=== PATIENT | male | born 1955 | race Caucasian/White ===

== ENCOUNTER 2019-02-15 04:05 | Emergency (ER) | payer MEDICAID ==
[~2019-02-15] VITALS: Ht 167.6 cm; Wt 83.9 kg
[2019-02-15 04:20] VITALS: BP_SYST 124
[2019-02-15] MEDS ORDERED: AMLO5TAB4 PO (04:26)
[2019-02-15] MEDS ORDERED: OMEP20CA10 PO (04:26)
[2019-02-15] MEDS ORDERED: ALBMDI INH (04:27)
[2019-02-15] MEDS ORDERED: LevALBUTEROL HCL 1.25 MG/0.5 ML *CONC.* VIAL.NEB (XOPENEX CONC.) INH ONE (04:30)
[2019-02-15] MEDS ORDERED: IPRATROPIUM BROM 0.5 MG/2.5 ML VIAL.NEB (ATROVENT) IH ONE (04:30)
[2019-02-15] MEDS ORDERED: AMOXICILLIN 500 MG CAPSULE PO ONE (05:30)
[2019-02-15 05:40] VITALS: BP_SYST 124
== END 2019-02-15 05:40 | disposition home or self-care (01) ==
LOC: SED 04:05
DX: J40 Bronchitis, not specified as acute or chronic (principal); I10 Essential (primary) hypertension; K21.9 Gastro-esophageal reflux disease without esophagitis
CPT/HCPCS: 71046; 94640; 99283; J7612

== ENCOUNTER 2019-09-14 07:19 | Emergency (ER) | payer MEDICAID ==
[~2019-09-14] VITALS: Ht 167.6 cm; Wt 83.9 kg
[~2019-09-14 07:19] MED LIST: ALBMDI INH; AMLO5TAB4 PO; OMEP20CA11 PO
[2019-09-14 07:41] VITALS: BP_SYST 136
[2019-09-14] MEDS ORDERED: HYDR-4100 PO (07:41)
--- NOTE | 2019-09-14 07:49 | NUR ---
PATIENT TO WAITING ROOM; STABLE AND UNCHANGED
--- NOTE | 2019-09-14 08:11 | NUR ---
PATIENT NOT FOUND IN ER NOR SURROUNDING AREA; ELOPED/LWBS
== END 2019-09-14 08:11 | disposition left against medical advice (07) ==
LOC: SED 07:19
DX: R21 Rash and other nonspecific skin eruption (principal); Z53.21 Procedure and treatment not carried out due to patient leaving prior to being seen by health care provider

== ENCOUNTER 2019-12-15 14:17 | Emergency (ER) | payer MEDICAID ==
[~2019-12-15] VITALS: Ht 165.1 cm; Wt 83.9 kg
[~2019-12-15 14:17] MED LIST changes: +HYDR-4100 PO
[2019-12-15 14:30] VITALS: BP_SYST 139
[2019-12-15] MEDS ORDERED: ASPI-989 PO (14:30)
[2019-12-15] MEDS ORDERED: DOXY100C2 PO (14:30)
[2019-12-15] MEDS ORDERED: SOM350 PO (14:35)
[2019-12-15 15:10] LABS: BASOPHILS # (AUTO) 0.1 K/uL (0.0-0.2); BASOPHILS % (AUTO) 1.3 % (0.0-2.0); EOSINOPHILS # (AUTO) 0.3 K/uL (0.0-0.4); EOSINOPHILS % (AUTO) 4.1 % (0.0-4.0); HEMATOCRIT 45.9 % (36-54); HEMOGLOBIN 15.6 g/dL (14.0-18.0); LYMPHOCYTES # (AUTO) 1.8 K/uL (1.0-5.5); LYMPHOCYTES % (AUTO) 28.8 % (20.5-51.5); MEAN CORPUSCULAR HEMOGLOBIN 32 pg (27-31); MEAN CORPUSCULAR HGB CONC 34 % (32-36); MEAN CORPUSCULAR VOLUME 93 fL (79.0-98.0); MONOCYTES # (AUTO) 0.6 K/uL (0.0-1.0); MONOCYTES % (AUTO) 9.5 % (1.7-9.3); NEUTROPHILS # (AUTO) 3.6 K/uL (1.8-7.7); NEUTROPHILS % (AUTO) 56.3 % (40.0-70.0); PLATELET COUNT (AUTO) 164 K/uL (130-430); RED BLOOD CELL COUNT(AUTO) 4.94 MIL/uL (4.2-6.2); RED CELL DISTRIBUTION WIDTH 14.3 % (9.0-15.0); WHITE BLOOD COUNT (AUTO) 6.4 K/uL (4.8-10.8)
[2019-12-15 15:16] LABS: CALCIUM 8.4 mg/dL (8.4-11.0); CREATININE 1.16 mg/dL (0.55-1.30); POTASSIUM 3.4 mmol/L (3.5-5.1)
[2019-12-15 15:20] LABS: PROTHROMBIN TIME 9.9 SECS (9.5-12.5)
[2019-12-15 15:22] LABS: ALBUMIN 3.6 g/dL (3.4-4.8); TOTAL BILIRUBIN 0.4 mg/dL (0.0-1.0)
[2019-12-15 15:30] LABS: BILIRUBIN,URINE NEGATIVE (NEGATIVE); CLARITY/URINE CLEAR (CLEAR); COLOR,URINE YELLOW (YELLOW); GLUCOSE,URINE NEGATIVE (NEGATIVE); KETONES,URINE NEGATIVE (NEGATIVE); LEUKOCYTE ESTERASE ,URINE TRACE (NEGATIVE); NITRITE, URINE NEGATIVE (NEGATIVE); PROTEIN URINE NEGATIVE (NEGATIVE); UROBILINOGEN,URINE 0.2 (0.2-1.0)
[2019-12-15 15:43] LABS: BARBITURATE, URINE NEGATIVE (NEG <=200)
[2019-12-15 15:44] LABS: BENZODIAZEPINE, URINE POSITIVE (NEG <=150); CANNABINOID, URINE NEGATIVE (NEG <=50); COCAINE, URINE NEGATIVE (NEG <=150); METHAMPHETAMINES SCREEN,URINE POSITIVE (NEG <=500); OPIATE, URINE POSITIVE (NEG <=100); PHENCYCLIDINE SCREEN,URINE NEGATIVE (NEG <=25); UR TRICYCLIC ANTIDEPRESSANTS NEGATIVE (NEG <=300); URINE AMPHETAMINE POSITIVE (NEG <=500); URINE METHADONE NEGATIVE (NEG <=200); URINE OXYCODONE SCREEN NEGATIVE (NEG <=100); URINE PROPOXYPHENE SCREEN NEGATIVE (NEG <=300)
[2019-12-15 15:45] LABS: BLOOD, URINE TRACE (NEGATIVE)
[2019-12-15 15:47] LABS: BACTERIA,URINE FEW /HPF (None Seen); RBC,URINE NONE SEEN /HPF (0-3)
[2019-12-15 15:48] LABS: MUCUS,URINE None Seen /LPF (None Seen)
[2019-12-15 23:19] VITALS: BP_SYST 159
== END 2019-12-15 16:00 | disposition home or self-care (01) ==
LOC: SED 14:17
DX: R41.82 Altered mental status, unspecified (principal); F19.10 Other psychoactive substance abuse, uncomplicated; I10 Essential (primary) hypertension; Z79.899 Other long term (current) drug therapy
CPT/HCPCS: 36415; 70450; 71045; 80053; 80307; 81000; 82550; 84484; 85025; 85610; 85730; 93005; 99285; G0482

== ENCOUNTER 2020-09-29 16:54 | Inpatient (IN) | payer MEDICAID ==
[~2020-09-29] VITALS: Ht 167.6 cm; Wt 86.2 kg
[~2020-09-29 16:54] MED LIST changes: -ALBMDI INH; +ASPI-989 PO; +DOXY100C2 PO; +HYDR-3927 PO; -HYDR-4100 PO; -OMEP20CA11 PO; +SOM350 PO
--- NOTE | 2020-09-29 17:02 | NUR ---
Patient to ER bed 8 to gown for evaluation. Side rails up. Report given to ELENA Montague.
[2020-09-29 17:03] VITALS: BP_SYST 153
--- NOTE | 2020-09-29 17:05 | NUR ---
patient is assessed. A/Ox4. C/o dysphagia (unable to swallow even water and saliva). Patient had a hotdog earlier today, which he was not able to swallow. Ambulatory, A/Ox4, cooperative.
--- NOTE | 2020-09-29 17:08 | NUR ---
ALLY David at bedside examining patient.
[2020-09-29] MEDS ORDERED: PRED10TA PO (17:11)
[2020-09-29] MEDS ORDERED: SPIRIVA PO (17:11)
[2020-09-29] MEDS ORDERED: SOM350 PO (17:11)
[2020-09-29] MEDS ORDERED: ALBMDI PO (17:11)
[2020-09-29] MEDS ORDERED: AMLO5TAB4 PO (17:11)
[2020-09-29] MEDS ORDERED: HYDR-4274 PO (17:11)
--- NOTE | 2020-09-29 17:11 | NUR ---
Medication reconciliation completed with information provided by patient. Any prior medication reconciliation on file was reviewed and corrected.
[2020-09-29] MEDS ORDERED: NACL 0.9% 1,000 ML IV ONE (17:15)
[2020-09-29] MEDS ORDERED: ONDANSETRON HCL 4 MG/2 ML VIAL IVP ONE (17:15)
[2020-09-29 17:27] LABS: HEMATOCRIT 44.4 % (36-54); HEMOGLOBIN 14.7 g/dL (14.0-18.0); MEAN CORPUSCULAR HEMOGLOBIN 30 pg (27-31); MEAN CORPUSCULAR HGB CONC 33 % (32-36); MEAN CORPUSCULAR VOLUME 91 fL (79.0-98.0); PLATELET COUNT (AUTO) 223 K/uL (130-430); RED CELL DISTRIBUTION WIDTH 13.6 % (9.0-15.0); WHITE BLOOD COUNT (AUTO) 23.4 K/uL (4.8-10.8)
[2020-09-29] MEDS ORDERED: LR 1,000 ML IV ONE (17:30)
[2020-09-29 17:40] LABS: ANION GAP 9 (5-15); CHLORIDE 106 mmol/L (98-107); GLUCOSE 113 mg/dL (70-99); POTASSIUM 4.3 mmol/L (3.5-5.1); SODIUM SERUM 142 mmol/L (136-145)
[2020-09-29 17:41] LABS: BAND % (MANUAL) 5 % (0-6); BASOPHILS % (MANUAL) 0 % (0-2); CALCIUM 9.3 mg/dL (8.4-11.0); CREATININE 1.39 mg/dL (0.55-1.30); EOSINOPHILS % (MANUAL) 0 % (0-7); GFR AFRICAN AMERICAN 66 mL/min (>90); LYMPHOCYTES % (MANUAL) 4 % (20-46); MONOCYTES % (MANUAL) 4 % (0-11); UREA NITROGEN, BLOOD 21 mg/dL (8-21)
[2020-09-29 17:46] LABS: ALANINE AMINOTRANSFERASE 34 U/L (12-78); ASPARTATE AMINOTRANSFERASE 20 U/L (10-37); BILIRUBIN,DIRECT 0.1 mg/dL (0.0-0.3); TOTAL BILIRUBIN 0.4 mg/dL (0.0-1.0)
[2020-09-29 17:47] LABS: LIPASE 39 U/L (73-393)
[2020-09-29 18:20] LABS: BILIRUBIN,URINE NEGATIVE (NEGATIVE); BLOOD, URINE NEGATIVE (NEGATIVE); CLARITY/URINE CLEAR (CLEAR); COLOR,URINE YELLOW (YELLOW); GLUCOSE,URINE NEGATIVE (NEGATIVE); KETONES,URINE NEGATIVE (NEGATIVE); LEUKOCYTE ESTERASE ,URINE NEGATIVE (NEGATIVE); NITRITE, URINE NEGATIVE (NEGATIVE); PROTEIN URINE NEGATIVE (NEGATIVE); UROBILINOGEN,URINE 0.2 (0.2-1.0)
[2020-09-29 18:34] LABS: BARBITURATE, URINE NEGATIVE (NEG <=200)
[2020-09-29 18:35] LABS: BENZODIAZEPINE, URINE POSITIVE (NEG <=150); CANNABINOID, URINE POSITIVE (NEG <=50); COCAINE, URINE NEGATIVE (NEG <=150); METHAMPHETAMINES SCREEN,URINE POSITIVE (NEG <=500); PHENCYCLIDINE SCREEN,URINE NEGATIVE (NEG <=25); URINE AMPHETAMINE POSITIVE (NEG <=500); URINE METHADONE NEGATIVE (NEG <=200)
[2020-09-29 18:36] LABS: OPIATE, URINE POSITIVE (NEG <=100); UR TRICYCLIC ANTIDEPRESSANTS NEGATIVE (NEG <=300); URINE OXYCODONE SCREEN NEGATIVE (NEG <=100); URINE PROPOXYPHENE SCREEN NEGATIVE (NEG <=300)
--- NOTE | 2020-09-29 18:40 | NUR ---
Patient will be admitted to care of Dr. Burt. Admitted to medsurg unit. Waiting for room assignment. Belongings list completed. Complete and up to date summary report printed. SBAR report to be given at bedside with opportunity for questions.
[2020-09-29] MEDS ORDERED: MORPHINE 4 MG/ML INJ. SYRINGE IVP ONE (19:00)
--- NOTE | 2020-09-29 19:04 | NUR ---
Report given to ELENA Braswell for continuation of care.
--- NOTE | 2020-09-29 19:05 | NUR ---
Received endorsement from day shift, AAOX4, breathing spontaneously at room air, not in distress noted. witrh ongoing IV fluid with Ringer [id number] at 100ml/hour infusing well at right antecubital vein. Admitted as a case of Food Impaction under the care of Dr. Burt to telemetry unit. Safety mesaures in place and continue to monitor.
--- NOTE | 2020-09-29 19:23 | NUR ---
Complained of severe abdominal and throat pain 10/10. Morphhine 4mg IV once as ordered given. health teaching provided, verbalized understanding.
--- NOTE | 2020-09-29 19:46 | NUR ---
Med/sug contacted and spoke to ELENA Grande, she will call me back for the report.
--- NOTE | 2020-09-29 20:10 | NUR ---
Patient's Tierra called, update patient status and she spoke with Dr. David , ER Attending
--- NOTE | 2020-09-29 20:26 | NUR ---
Transfer to MED/SURG 117-A via WHEELCHAIR IN STABLE CONDITION. IV present no signs or symptoms of infiltration.Report given to Ms. Christiane RN via phone
[2020-09-29] MEDS ORDERED: ALBUTEROL SULFATE 0.083% 2.5 MG/3 ML VIAL.NEB INH PRN (20:30)
[2020-09-29] MEDS ORDERED: NALOXONE HCL 0.4 MG/ML AMP (NARCAN) IVP PRN ×2 (20:30)
[2020-09-29] MEDS ORDERED: hydrALAZINE HCL 20 MG/ML VIAL IVP PRN (20:30)
[2020-09-29] MEDS ORDERED: MORPHINE 4 MG/ML INJ. SYRINGE IVP PRN (20:30)
[2020-09-29] MEDS ORDERED: LORazepam 2 MG/ML VIAL IVP PRN (20:30)
[2020-09-29] MEDS ORDERED: ONDANSETRON HCL 4 MG/2 ML VIAL IVP PRN (20:30)
--- NOTE | 2020-09-29 20:30 | NUR ---
ADMISSION PHYSICAL ASSESSMENT NOTES; pt. admitted from ER, apparently diagnose with food impaction. oriented to room, use of call light. IVF infusing via rt. antecubital. on room air. will keep NPO. moves all extremities. denies any pain at this time. instructed to call for help. call light at bedside.
[2020-09-29] MEDS: HYDROcodone/ACETAMIN 10-325 MG TAB PO SCH (21:00)
[2020-09-29] MEDS ORDERED: cefTRIAXone 1 GM IVPB PREMIX 50 ML IV SCH (21:00)
--- NOTE | 2020-09-29 21:13 | NUR ---
CONSULTATION CALLED FOR DR DASH FOR CONSULT OF FOOD IMPACTION ORDER BY DR GRANDA SPOKE WITH ELVIA
--- NOTE | 2020-09-29 21:30 | NUR ---
NOTES: spoke with pt. mother, does not want to talk to her athe moment. updated on pt. status. pt. resting. IVF infusing.
[2020-09-29 21:50] VITALS: BP_SYST 116
[2020-09-29 22:00] VITALS: BP_SYST 102
--- NOTE | 2020-09-29 22:00 | NUR ---
Pt refused HHN tx despite Bilateral Wheezing present. O2 saturation 96% on RA. Addendum: 09/29/20 at 2202 by Asha Chavez RT Amended: Links added.
[2020-09-29] MEDS: PANTOPRAZOLE SODIUM 40 MG/VIAL (PROTONIX) IVP SCH (22:16)
[2020-09-29] MEDS: NACL 0.9% 1,000 ML IV SCH (22:16)
[2020-09-29] MEDS: MORPHINE 2 MG/ML INJ. SYRINGE IVP PRN (22:43)
[2020-09-29] MEDS ORDERED: cefTRIAXone 1 GM VIAL ONE (22:43)
--- NOTE | 2020-09-29 22:43 | NUR ---
NOTES: pt. medicated with IV Morphine for c/o lower back pain.
--- NOTE | 2020-09-29 23:30 | NUR ---
NOTES: pt. noted relief and sleeping when checked.
--- NOTE | 2020-09-30 01:30 | NUR ---
NOTES: pt. remain sleeping. IVF infusing. call light at bedside.
--- NOTE | 2020-09-30 04:00 | NUR ---
NOTES: condition observed. continue to monitor.
[2020-09-30 05:00] VITALS: BP_SYST 112
--- NOTE | 2020-09-30 05:53 | NUR ---
NOTES: pt. still asleep, repositioned self for comfort. IVF infusing. kept NPO for EGD, GI consult.
[2020-09-30] MEDS: NACL 0.9% 1,000 ML IV SCH (06:50)
--- NOTE | 2020-09-30 06:50 | NUR ---
CLOSING NOTES; CONSENT SIGNED FOR EGD. PT. VERBALIZED THAT HE PASSED DOWN HIS THROAT THE HOT DOG MEAT, INFORMED HIM TO TELL MD.. IVF PATENT. FOR FURTHER CARE AND ASSIST. CALL LIGHT AT BEDSIDE.
[2020-09-30 08:00] VITALS: BP_SYST 121
--- NOTE | 2020-09-30 08:00 | NUR ---
opening note RECEIVED REPORT FROM NIGHT NURSE. PATIENT IS ALERT AND ORIENTED X4. ON ROOM AIR AND TOLERATING WEL.. IV PATENT INFUSING FLUIDS ORDERED. BED LOCKED AND IN LOWEST POSITION. CALL LIGHT WITHIN REACH. WILL CONTINUE TO MONITOR.
[2020-09-30 08:02] LABS: BASOPHILS % (AUTO) 0.4 % (0.0-2.0); EOSINOPHILS # (AUTO) 0.1 K/uL (0.0-0.4); HEMATOCRIT 39.6 % (36-54); HEMOGLOBIN 12.8 g/dL (14.0-18.0); LYMPHOCYTES # (AUTO) 1.9 K/uL (1.0-5.5); MEAN CORPUSCULAR HEMOGLOBIN 30 pg (27-31); MEAN CORPUSCULAR HGB CONC 32 % (32-36); MEAN CORPUSCULAR VOLUME 92 fL (79.0-98.0); MONOCYTES # (AUTO) 0.7 K/uL (0.0-1.0); MONOCYTES % (AUTO) 7.6 % (1.7-9.3); NEUTROPHILS # (AUTO) 6.7 K/uL (1.8-7.7); PLATELET COUNT (AUTO) 136 K/uL (130-430); RED CELL DISTRIBUTION WIDTH 13.9 % (9.0-15.0); WHITE BLOOD COUNT (AUTO) 9.4 K/uL (4.8-10.8)
[2020-09-30 08:24] LABS: CALCIUM 7.7 mg/dL (8.4-11.0); CREATININE 1.17 mg/dL (0.55-1.30); TOTAL BILIRUBIN 0.2 mg/dL (0.0-1.0)
[2020-09-30 08:29] LABS: PROTHROMBIN TIME 10.3 SECS (9.5-12.5)
[2020-09-30] MEDS: HYDROcodone/ACETAMIN 10-325 MG TAB PO SCH (08:36)
[2020-09-30] MEDS: PANTOPRAZOLE SODIUM 40 MG/VIAL (PROTONIX) IVP SCH (08:36)
[2020-09-30] MEDS: MORPHINE 2 MG/ML INJ. SYRINGE IVP PRN (08:41)
--- NOTE | 2020-09-30 10:15 | NUR ---
PATIENT LFT AMA Patient stated he did not want to have the EGD done. He said that he has been through this before and he wants to go home against medical advice. I explained the risks of going home AMA. He understood. Patient is competent and able to make his own decisions. He signed the AMA form. I informed Dr. Burt on the floor. Took out his IV. Took off his name band and patient was escorted out.
== END 2020-09-30 10:15 | disposition left against medical advice (07) | DRG 254 ==
LOC: SED 16:54 → SMU 18:40
PROVIDERS: ADMIT Internal Medicine Hospice and Palliative Medicine; ATTEND Internal Medicine Hospice and Palliative Medicine
DX: T18.128A Food in esophagus causing other injury, initial encounter (principal); I10 Essential (primary) hypertension; F15.90 Other stimulant use, unspecified, uncomplicated; Z20.822 Contact with and (suspected) exposure to COVID-19; X58.XXXA Exposure to other specified factors, initial encounter; Z79.899 Other long term (current) drug therapy; Y93.89 Activity, other specified; Y92.89 Other specified places as the place of occurrence of the external cause; Y99.8 Other external cause status
CPT/HCPCS: 36415; 71045; 80048; 80053; 80076; 80307; 81003; 83690-TC; 83880; 84484; 85007; 85025; 85027; 85610-TC; 85730-TC; 87040-TC; 87086; 93005; 96361; 96374; 96375; C9113; J0696; J2270; J2405

== ENCOUNTER 2021-05-20 16:11 | Emergency (ER) | payer OTHER, MEDICAID, SELFPAY ==
[~2021-05-20] VITALS: Ht 167.6 cm; Wt 83.9 kg
[~2021-05-20 16:11] MED LIST changes: +ALBMDI PO; -ASPI-989 PO; -DOXY100C2 PO; +ESCI20TA PO; -HYDR-3927 PO; +HYDR-4274 PO; +IPRA3AMP9 INH; +MED4 PO; +PANT20TA2 PO; +ZIT250 PO
[2021-05-20 16:32] VITALS: BP_SYST 142
== END 2021-05-20 17:33 | disposition left against medical advice (07) ==
LOC: SED 16:11
DX: R09.81 Nasal congestion (principal); R00.0 Tachycardia, unspecified; Z53.21 Procedure and treatment not carried out due to patient leaving prior to being seen by health care provider
CPT/HCPCS: 93005

== ENCOUNTER 2022-02-19 12:06 | Emergency (ER) | payer OTHER, MEDICAID ==
[~2022-02-19] VITALS: Ht 167.6 cm; Wt 88.5 kg
--- NOTE | 2022-02-19 12:09 | NUR ---
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 PT ADMITS TO SMOKING CIGARETTES AND HAS COPD. PT STATES HE TOOK SEVERAL ABUTEROL TREATMENTS BEFORE COMING. PT IN NO RESPIRATORY DISTRESS, LS-WHEEZES DURGA. SKIN W/D/I.
[2022-02-19 12:25] VITALS: BP_SYST 152
[2022-02-19] MEDS ORDERED: ALBUTEROL SULFATE 0.083% 2.5 MG/3 ML VIAL.NEB INH ONE (12:30)
--- NOTE | 2022-02-19 12:48 | NUR ---
DR SEXTON IN TENT TO EXAMINE PT.
[2022-02-19] MEDS ORDERED: CETI10CA PO (14:32)
[2022-02-19] MEDS ORDERED: GUAI5SYR PO (14:32)
[2022-02-19] MEDS ORDERED: ALBMDI INH (14:32)
[2022-02-19] MEDS ORDERED: DOXY-244 PO (14:40)
[2022-02-19] MEDS ORDERED: ALBU2.5V7 INH (14:40)
[2022-02-19] MEDS ORDERED: PRED20TA PO (14:40)
--- NOTE | 2022-02-19 14:43 | NUR ---
Patient given written and verbal discharge instructions and verbalizes understanding. ER MD discussed with patient the results and treatment provided. Patient in stable condition. ID arm band removed. Rx of ALBUTEROL, CETROZINE, DOXYCYCLINE, GUAIFENESIN, PREDNISONE. given. Patient educated on pain management and to follow up with PMD. Pain Scale . Opportunity for questions provided and answered. Medication side effect fact sheet provided.
[2022-02-19 14:45] VITALS: BP_SYST 147
== END 2022-02-19 14:43 | disposition home or self-care (01) ==
LOC: SED 12:06
DX: J45.901 Unspecified asthma with (acute) exacerbation (principal); R06.02 Shortness of breath; J44.1 Chronic obstructive pulmonary disease with (acute) exacerbation; I10 Essential (primary) hypertension; Z79.899 Other long term (current) drug therapy
CPT/HCPCS: 71045; 94640; 99283; J7613

== ENCOUNTER 2024-01-07 00:29 | Emergency (ER) | payer OTHER, MEDICAID ==
[~2024-01-07] VITALS: Ht 167.6 cm; Wt 81.6 kg
[~2024-01-07 00:29] MED LIST changes: +ALBMDI INH; +ALBU2.5V7 INH; +CETI10CA PO; +DOXY-244 PO; +GUAI5SYR PO; +PRED20TA PO
[2024-01-07 00:36] VITALS: BP_SYST 146; PULSE 107; RESP 23; TEMP 97.9; O2SAT 94
[2024-01-07] MEDS: KETOROLAC TROMETHAMINE 60 MG/2 ML VIAL IM ONE (01:26)
[2024-01-07] MEDS: HYDROcodone/ACETAMIN 10-325 MG TAB PO ONE (01:57)
[2024-01-07] MEDS ORDERED: HYDR-3927 PO (01:58)
[2024-01-07] MEDS ORDERED: D-ME120S28 PO (02:18)
[2024-01-07 02:26] VITALS: BP_SYST 118; PULSE 104; RESP 16; TEMP 98; O2SAT 95
== END 2024-01-07 02:20 | disposition home or self-care (01) ==
LOC: SED 00:29
DX: S22.32XA Fracture of one rib, left side, initial encounter for closed fracture (principal); S20.212A Contusion of left front wall of thorax, initial encounter; J44.9 Chronic obstructive pulmonary disease, unspecified; I10 Essential (primary) hypertension; Z79.899 Other long term (current) drug therapy; Z79.2 Long term (current) use of antibiotics; V29.888A Rider (driver) (passenger) of other motorcycle injured in other specified transport accidents, initial encounter; Y93.89 Activity, other specified; Y92.89 Other specified places as the place of occurrence of the external cause; Y99.8 Other external cause status
CPT/HCPCS: 99283; 93005; 71100; 96372; J1885

== ENCOUNTER 2024-04-12 06:02 | Emergency (ER) | payer OTHER, MEDICAID ==
[~2024-04-12] VITALS: Ht 167.6 cm; Wt 83.9 kg
[~2024-04-12 06:02] MED LIST changes: +D-ME120S28 PO; +HYDR-3927 PO
[2024-04-12 06:15] VITALS: BP_SYST 124; PULSE 102; RESP 20; TEMP 97.4; O2SAT 96
[2024-04-12] MEDS: IBUPROFEN 800 MG TABLET PO ONE (08:16)
[2024-04-12] MEDS: HYDROcodone/ACETAMIN 10-325 MG TAB PO ONE (08:17)
[2024-04-12] MEDS ORDERED: HYDR-3927 PO (09:03)
[2024-04-12] MEDS ORDERED: IBUP-1969 PO (09:03)
[2024-04-12 09:19] VITALS: BP_SYST 116; PULSE 96; RESP 18; TEMP 97.6; O2SAT 92
== END 2024-04-12 09:20 | disposition home or self-care (01) ==
LOC: SED 06:02
DX: S73.101A Unspecified sprain of right hip, initial encounter (principal); J44.9 Chronic obstructive pulmonary disease, unspecified; I10 Essential (primary) hypertension; K40.90 Unilateral inguinal hernia, without obstruction or gangrene, not specified as recurrent; Z79.52 Long term (current) use of systemic steroids; Z79.899 Other long term (current) drug therapy; X58.XXXA Exposure to other specified factors, initial encounter; Y93.89 Activity, other specified; Y92.89 Other specified places as the place of occurrence of the external cause; Y99.8 Other external cause status
CPT/HCPCS: 72192-TC; 99284